=== PATIENT | female | born 1955 | race Caucasian/White ===

== ENCOUNTER → 2016-05-26 | Outpatient (CLI) | payer BC ==
[~2016-05-26] MED LIST: ASA325 MG PO; GLUCOPHAGE-DPS500 MG PO; GLUCOTROL DPS5 MG PO; HYDRODIURIL-DPS25 MG PO; LIPITOR DPS20 MG PO; NORVASC DPS10 MG PO; SENOKOT S1 TAB PO; TEARS NATURAL D15 ML OU; TYLENOL DPS325 MG PO; VITAMIN D3400 UNIT PO; ZESTRIL DPS20 MG PO
== END | disposition home or self-care (01) ==
LOC: RAD.S 10:42
DX: Z12.31 Encounter for screening mammogram for malignant neoplasm of breast (principal)

== ENCOUNTER 2016-07-05 06:31 | Day surgery (SDC) | payer BC ==
[~2016-07-05] VITALS: Ht 162.6 cm; Wt 71.3 kg
--- NOTE | 2016-07-06 08:27 | OR ---
ADMIT: 07/05/2016 RM/LOC: [facility] MR#: [id number] [address] [address] [place] [id number] Operative/Delivery Room Report SEX: F AGE: 61 : 1955 SURGERY DATE: 07/05/2016 SURGEON: Ruslan Mcpherson MD PROCEDURE: Total colonoscopy. PREOPERATIVE DIAGNOSIS: Family history of colon cancer. POSTOPERATIVE DIAGNOSIS: Normal total colonoscopy. DESCRIPTION OF PROCEDURE: The patient was brought to the procedure room, placed in left lateral decubitus position. Informed consent had been obtained preoperatively. The risks and benefits including, but not limited to, perforation, sedation, bleeding were discussed with the patient and agreed upon. All questions were answered, alternatives discussed, the patient agreed. TIVA was provided by the [employer]. Anal inspection, digital examination revealed no abnormalities or obstructing masses. The Olympus videoendoscope, model CF-H180AL was inserted thought the rectum and advanced to the cecum without difficulty. The appendiceal orifice and ileocecal valve were identified. The valve was cannulated. The terminal ileum appeared normal for approximately 10 cm. The scope was slowly withdrawn through a normal cecum, ascending, transverse, descending, and sigmoid colon. Rectum likewise appeared normal. Scope was retroflexed, the anal verge appeared normal. The patient tolerated the procedure well. No complications were expected. There was no blood loss during the procedure. She will call me if she has any postoperative problems. I would recommend due to her family history, she have repeat colonoscopy in 5 years unless signs or symptoms develop in the interval. Ruslan Mcpherson MD/ [facility] JOB #: [id number] CC: Ruslan Mcpherson MD, Attending Physician Juan Carlos Hayes PA-C, Family Physician Melissa Oviedo MD
== END 2016-07-05 09:25 | disposition home or self-care (01) ==
LOC: SSS 06:31
PROC: 0DJD8ZZ Inspection of Lower Intestinal Tract, Via Natural or Artificial Opening Endoscopic (ICD-10-PCS; principal; 2016-07-05)
DX: Z12.11 Encounter for screening for malignant neoplasm of colon (principal); I10 Essential (primary) hypertension; E11.9 Type 2 diabetes mellitus without complications; Z90.710 Acquired absence of both cervix and uterus; Z86.73 Personal history of transient ischemic attack (TIA), and cerebral infarction without residual deficits; Z98.890 Other specified postprocedural states; Z79.899 Other long term (current) drug therapy; Z80.0 Family history of malignant neoplasm of digestive organs

== ENCOUNTER → 2016-08-13 | Outpatient (CLI) | payer BC | END | disposition home or self-care (01) | LOC: PTH.S 11:12 | DX: E78.5 Hyperlipidemia, unspecified (principal); G46.3 Brain stem stroke syndrome ==